=== PATIENT | female | born 1995 | race Caucasian/White ===

== ENCOUNTER 2023-06-06 16:49 | Emergency (ER) | payer MEDICAID, SELFPAY ==
[2023-06-06 16:50] VITALS: BP 140/91; PULSE 66; RESP 16; TEMP 36.7; O2SAT 97; BMI 36.8
--- NOTE | 2023-06-06 17:47 | PC.NURSE ---
Rounded on patient. No needs at this time.
--- NOTE | 2023-06-06 18:07 | PC.NURSE ---
Dr. Oliva in room with pt.
--- NOTE | 2023-06-06 18:13 | HMH.EDGENADL ---
Discharge Plan Disposition Chief Complaint: Weakness Referrals Follow up/Referrals: Provider,Referral, [Primary Care Provider] - See instructions Clinical Impressions Clinical Impression: Weakness, Slurring of speech Discharge ED Provider: Moisés Oliva General Adult HPI General Chief complaint: Weakness Stated complaint: FULLER, slurred speech Time Seen by Provider: 06/06/23 18:05 Mode of Arrival: Ambulatory Source of Information: Patient Limitations: No Limitations Description of Symptoms (Recalled from ER Triage Doc. by RN): Patient states she has been dealing with slurred speech, not being able to focus or thinnk, fatigue, joint pain, dropping thins, left wrist pain, hot flashes and memory problems off and on for 5 years. Both the patient and the are worried the patient may have Lupus because she breaks out in a butterfly rash when she goes out in the sun. History of Present Illness HPI narrative: Patient is a 28-year-old female with past medical history of PTSD who presents emergency department for evaluation of multiple complaints. Patient states that she has had intermittent hot flashes, intermittent slurred speech, intermittent not localizable headaches, poor focusing, photosensitive rash over the last 5 years. Symptoms come and go. They recently [place] here [place] of town. Patient is very concerned that she may have lupus. No other acute complaints at this time. Related Data Allergies Allergy/AdvReac Type Severity Reaction Status Date / Time loratadine [From Claritin-D] Allergy Verified 06/06/23 17:03 pseudoephedrine Allergy Verified 06/06/23 17:03 [From Claritin-D] [facility] Disclaimer: The information contained in this section may have been updated after the patient was seen, as this information can be updated by other users. Social History Smoking Status: Current every day smoker alcohol intake: never current occupational status: other Travel in the last 8 weeks: None ROS Obtained: Yes Systems reviewed as appropriate & no additional complaints except as documented Physical Exam General General appearance: alert and in no apparent distress Head Head exam: atraumatic and normocephalic Eye Eye exam: Present PERRL and EOMI ENT ENT exam: Present mucous membranes moist Neck Neck exam: Present normal inspection Chest Chest inspection: Present normal inspection and symmetric chest wall rise Respiratory Respiratory exam: Present normal lung sounds bilaterally; Absent respiratory distress Cardiovascular Cardiovascular exam: Present regular rate and normal rhythm Abdominal Exam Abdominal exam: Present soft; Absent tenderness Extremities Exam Extremities exam: Present normal inspection Neurological Exam Neurological exam: Present alert, CN II-XII intact and normal gait; Absent motor sensory deficit Psychiatric Psychiatric exam: Present normal affect Skin Skin exam: Present warm and dry Medical Decision Making Khris Inquiry Pt receiving controlled substance: No Vital Signs: 06/06/23 16:50 Temperature 98.0 F Temperature Source Oral Pulse Rate [Radial] 66 Respiratory Rate 16 Blood Pressure [Right Arm] 140/91 H Blood Pressure Mean [Right Arm] 107 Blood Pressure Source [Right Arm] Automatic Cuff Blood Pressure Position [Right Arm] Sitting 02 Sat by Pulse Oximetry 97 Oxygen Delivery Method Room Air Orders (Tests/Meds): ORDERS Category Date Time Status CT angio head Stat Cat Scan 06/06/23 18:[address] angio neck Stat Cat Scan 06/06/23 18:[address] head/brain wo con Stat Cat Scan 06/06/23 18:12 Ordered CBC w/Auto Diff [Complete Blood Count Auto Diff] Stat Lab 06/06/23 18:12 Ordered CMP [Comprehensive Metabolic Panel] Stat Lab 06/06/23 18:12 Ordered ESR [Erythrocyte Sedimentation Rate] Stat Lab 06/06/23 18:12 Ordered HCG Qualitative, Serum Stat Lab 06/06/23 18:13 Ordered MG [Magnesium] Stat Lab 06/06/23 18:12 Ordered EKG Reques
--- NOTE | 2023-06-06 18:23 | PC.NURSE ---
Went to move patient to room. Patient and family gone. Per other nurse and registration patient, and kids left.
[2023-06-06 18:25] VITALS: BP 140/91; PULSE 66; RESP 16; TEMP 36.6; O2SAT 97
== END 2023-06-06 18:28 | disposition left against medical advice (07) ==
PROVIDERS: Emergency Provider Emergency Medicine
DX: R51.9 Headache, unspecified (principal); R53.1 Weakness; R47.81 Slurred speech; F43.10 Post-traumatic stress disorder, unspecified; F17.200 Nicotine dependence, unspecified, uncomplicated
CPT/HCPCS: 99285